=== PATIENT | female | born 1975 | race Caucasian/White ===

== ENCOUNTER 2018-04-18 20:59 | Emergency (ER) | payer OTHER ==
[~2018-04-18] VITALS: Ht 157.5 cm; Wt 61.2 kg
[~2018-04-18 20:59] MED LIST: TYLENOL PO
[2018-04-18 21:35] LABS: *URINE HCG, QUAL NEGATIVE (NEGATIVE)
[2018-04-18 21:37] LABS: *BILIRUBIN,URIN NEGATIVE (NEGATIVE); *BLOOD, URINE NEGATIVE (NEGATIVE); *COLOR,URINE YELLOW (YELLOW); *KETONES,URINE NEGATIVE (NEGATIVE); *UROBILINOGEN,URINE 0.2 E.U./dl (NORMAL); LEUKOCYTE ESTERASE ,URINE NEGATIVE (NEGATIVE); NITRITE, URINE NEGATIVE (NEGATIVE); PH,URINE 7.5 (5.0-8.0); UGLUCOSE NEGATIVE (NEGATIVE)
[2018-04-18 21:47] LABS: *CLARITY,URINE HAZY (CLEAR)
[2018-04-18 21:50] LABS: BACTERIA,URINE FEW /HPF (NONE SEEN); MUCUS,URINE FEW /LPF (0-FEW); SQUAMOUS EPITHELIAL CELL,UR MODERATE /HPF (NONE SEEN); WBC,URINE 0-3 /HPF (0-3); YEAST,URINE FEW /HPF (NONE SEEN)
--- NOTE | 2018-04-18 22:57 | NUR ---
Pt placed to room 4B. Pt comes to ER with c/o pain upon urination x 4 days. Denies abd pain. Denies N/V.
--- NOTE | 2018-04-18 23:07 | NUR ---
Dr. Demond KAUR MD at bedside to evaluate pt.
[2018-04-18] MEDS ORDERED: DOXYCYCLINE HYCLATE 100 MG TABLET PO ONE (23:15)
[2018-04-18] MEDS ORDERED: FLUCONAZOLE 100 MG TABLET PO ONE (23:15)
[2018-04-18] MEDS ORDERED: FLUCONAZOLE 100 MG TABLET ONE (23:20)
[2018-04-18] MEDS ORDERED: DOXYCYCLINE HYCLATE 100 MG TABLET ONE (23:20)
[2018-04-18 23:27] VITALS: BP 112/69
--- NOTE | 2018-04-18 23:27 | NUR ---
Patient discharged to home in stable conditon. Written and verbal after care instructions given. Patient verbalizes understanding of instructions.
[2018-04-21 00:10] LABS: *GC NAA Negative (Negative); *TRIC.VAG. NAA Negative (Negative)
== END 2018-04-18 23:28 | disposition home or self-care (01) ==
LOC: ER 20:59
DX: N39.0 Urinary tract infection, site not specified (principal); B37.3 Candidiasis of vulva and vagina; Z79.899 Other long term (current) drug therapy
CPT/HCPCS: 84703; 87086; 87491; A4663

== ENCOUNTER 2019-09-24 21:08 | Emergency (ER) | payer OTHER ==
[~2019-09-24] VITALS: Ht 127 cm; Wt 63.5 kg
[2019-09-24] MEDS ORDERED: ONDANSETRON HCL 4 MG TABLET PO ONE (22:00)
[2019-09-24 22:04] LABS: BASOPHILS % (AUTO) 0.3 % (0.0-2.0); HEMATOCRIT 34.2 % (31.2-41.9); HEMOGLOBIN 11.3 g/dL (10.9-14.3); LYMPHOCYTES # (AUTO) 0.8 K/uL (20.0-40.0); LYMPHOCYTES % (AUTO) 11.5 % (20.5-51.5); MEAN CORPUSCULAR HEMOGLOBIN 25.6 uug (24.7-32.8); MEAN CORPUSCULAR HGB CONC 33 g/dL (32.3-35.6); MEAN CORPUSCULAR VOLUME 77.8 fL (75.5-95.3); MONOCYTES # (AUTO) 0.3 K/uL (2.0-10.0); MONOCYTES % (AUTO) 3.6 % (0.0-11.0); NEUTROPHILS # (AUTO) 5.9 K/uL (1.8-8.9); NEUTROPHILS % (AUTO) 84.6 % (38.5-71.5); PLATELET COUNT (AUTO) 239 K/uL (179-408)
[2019-09-24 22:05] LABS: CREATININE 0.8 mg/dL (0.6-1.3); POTASSIUM 3.8 mmol/L (3.5-5.1)
[2019-09-24 22:11] LABS: BILIRUBIN,DIRECT 0.1 mg/dL (0.0-0.2); BILIRUBIN,TOTAL 0.2 mg/dL (0.2-1.0); TOTAL PROTEIN, SERUM 7.2 g/dL (6.4-8.2)
[2019-09-24] MEDS ORDERED: ONDANSETRON HCL 4 MG TABLET ONE (22:17)
[2019-09-24 22:23] LABS: *BILIRUBIN,URIN NEGATIVE (NEGATIVE); *BLOOD, URINE 2+ (NEGATIVE); *CLARITY,URINE CLEAR (CLEAR); *COLOR,URINE DARK YELLOW (YELLOW); *KETONES,URINE 2+ (NEGATIVE); *UROBILINOGEN,URINE 0.2 E.U./dl (NORMAL); LEUKOCYTE ESTERASE ,URINE NEGATIVE (NEGATIVE); NITRITE, URINE NEGATIVE (NEGATIVE); UGLUCOSE NEGATIVE (NEGATIVE)
[2019-09-24 22:25] LABS: *URINE HCG, QUAL NEGATIVE (NEGATIVE)
[2019-09-24 22:42] LABS: BACTERIA,URINE NONE SEEN /HPF (NONE SEEN); SQUAMOUS EPITHELIAL CELL,UR FEW /HPF (NONE SEEN); WBC,URINE 0-3 /HPF (0-3)
[2019-09-24 23:01] VITALS: BP 127/82
== END 2019-09-24 23:02 | disposition home or self-care (01) ==
LOC: ER 21:08
DX: T37.8X1A Poisoning by other specified systemic anti-infectives and antiparasitics, accidental (unintentional), initial encounter (principal); T51.0X1A Toxic effect of ethanol, accidental (unintentional), initial encounter; R11.0 Nausea; R00.2 Palpitations; R42 Dizziness and giddiness; Y92.89 Other specified places as the place of occurrence of the external cause
CPT/HCPCS: 36415; 84703; 85025; 93005; A4663; Q0162

== ENCOUNTER 2021-04-26 19:34 | Emergency (ER) | payer OTHER ==
[~2021-04-26] VITALS: Ht 160 cm; Wt 68.0 kg
[2021-04-26] MEDS ORDERED: IV NORMAL SALINE 1000 ML BAG IV ONE (20:45)
[2021-04-26] MEDS ORDERED: ONDANSETRON 4 MG/2 ML VIAL IV ONE (20:45)
[2021-04-26] MEDS ORDERED: PANTOPRAZOLE SODIUM 40 MG VIAL IV ONE (20:45)
[2021-04-26] MEDS ORDERED: MORPHINE SULFATE 2 MG/1 ML DISP.SYRIN IV ONE (20:45)
[2021-04-26] MEDS ORDERED: MORPHINE SULFATE 2 MG/1 ML DISP.SYRIN ONE (21:05)
[2021-04-26] MEDS ORDERED: PANTOPRAZOLE SODIUM 40 MG VIAL ONE (21:05)
[2021-04-26] MEDS ORDERED: ONDANSETRON 4 MG/2 ML VIAL ONE ×2 (21:06→21:20)
[2021-04-26 21:40] LABS: HEMATOCRIT 37.1 % (31.2-41.9); MEAN CORPUSCULAR HEMOGLOBIN 27.1 uug (24.7-32.8); MEAN CORPUSCULAR VOLUME 80.5 fL (75.5-95.3); PLATELET COUNT (AUTO) 196 K/uL (179-408)
[2021-04-26 22:36] LABS: CARBON DIOXIDE 25 mmol/L (21-32); CHLORIDE 102 mmol/L (98-107); CREATININE 0.7 mg/dL (0.6-1.3); GLUCOSE 97 mg/dL (74-106); POTASSIUM 3.7 mmol/L (3.5-5.1); UREA NITROGEN, BLOOD 13 mg/dL (7-18)
[2021-04-26 22:41] LABS: ALANINE AMINOTRANSFERASE 43 U/L (14-59); ALKALINE PHOSPHATASE 49 U/L (50-136); ASPARTATE AMINOTRANSFERASE 26 U/L (15-37); BILIRUBIN,DIRECT < 0.1 mg/dL (0.0-0.2); BILIRUBIN,TOTAL 0.3 mg/dL (0.2-1.0); LIPASE 75 U/L (73-393); TOTAL PROTEIN, SERUM 7.8 g/dL (6.4-8.2)
[2021-04-26] MEDS ORDERED: ACETAMINOPHEN ES 500 MG TABLET PO ONE (23:00)
[2021-04-26] MEDS ORDERED: ACETAMINOPHEN ES 500 MG TABLET ONE (23:14)
[2021-04-26] MEDS ORDERED: ONDA4TAB11 PO (23:40)
--- NOTE | 2021-04-26 23:51 | NUR ---
er doctor spoke to the patient explained reason for discharged , denies feeling of nausea and vomiting , ambulaqtory , iv removed , pressure applied , all belongings sent to the patient
== END 2021-04-26 23:15 | disposition home or self-care (01) ==
LOC: ER 19:35
DX: R11.2 Nausea with vomiting, unspecified (principal); R10.13 Epigastric pain; R05.9 Cough, unspecified; Z20.822 Contact with and (suspected) exposure to COVID-19; H91.90 Unspecified hearing loss, unspecified ear
CPT/HCPCS: 36415; 71045; 80048; 80076; 83690; 84702; 85025; 87426; 96361; 96374; 96375; 99284; C9113; J2405 ×2; A4663; A9150; J2270; J7030

== ENCOUNTER 2022-07-12 07:38 | Emergency (ER) | payer OTHER ==
[~2022-07-12] VITALS: Ht 157.5 cm; Wt 63.5 kg
[~2022-07-12 07:38] MED LIST changes: +ONDA4TAB11 PO
[2022-07-12 08:00] LABS: *URINE HCG, QUAL NEGATIVE (NEGATIVE)
[2022-07-12] MEDS ORDERED: METRONIDAZOLE 500 MG TABLET PO ONE (08:00)
[2022-07-12 08:02] LABS: *BILIRUBIN,URIN NEGATIVE (NEGATIVE); *BLOOD, URINE NEGATIVE (NEGATIVE); *CLARITY,URINE CLEAR (CLEAR); *COLOR,URINE YELLOW (YELLOW); *KETONES,URINE NEGATIVE (NEGATIVE); *UROBILINOGEN,URINE 0.2 E.U./dl (NORMAL); LEUKOCYTE ESTERASE ,URINE NEGATIVE (NEGATIVE); NITRITE, URINE NEGATIVE (NEGATIVE); PH,URINE 5.5 (5.0-8.0); UGLUCOSE NEGATIVE (NEGATIVE)
[2022-07-12] MEDS ORDERED: METRONIDAZOLE 500 MG TABLET ONE (08:03)
--- NOTE | 2022-07-12 08:09 | NUR ---
PT IS IN ROOM #2A. DR CARDOZA EVALUATED THE PT.
[2022-07-12] MEDS ORDERED: METR-147 PO (08:20)
--- NOTE | 2022-07-12 08:54 | NUR ---
PT WAS D/C'd TO HOME. D/C INSTRUCTIONS GIVEN TO THE PT BY DR CARDOZA.
[2022-07-12 08:55] VITALS: BP 136/66
[2022-07-14 04:24] LABS: *GC NAA Negative (Negative)
[2022-07-14 06:06] LABS: *TRIC.VAG. NAA Negative (Negative)
== END 2022-07-12 08:55 | disposition home or self-care (01) ==
LOC: ER 07:38
DX: N76.0 Acute vaginitis (principal); B96.89 Other specified bacterial agents as the cause of diseases classified elsewhere; Z79.899 Other long term (current) drug therapy
CPT/HCPCS: 84703; 87491; A4663